=== PATIENT | female | born 1990 | race American Indian/Alaskan Native ===

== ENCOUNTER 2016-09-07 11:01 | Inpatient (IN) | payer OTHER ==
[~2016-09-07 11:01] MED LIST: ATROVENT IH ONE; PROVENTIL IH ONE
[2016-09-07] MEDS ORDERED: PROVENTIL IH ONE ×2 (11:30→13:15)
--- NOTE | 2016-09-07 11:31 | Emergency Department Report ---
ED Shortness of Breath HPI - General Chief Complaint: Dyspnea/Respdistress Stated Complaint: NARCISO Time Seen by Provider: 09/07/16 11:17 Source: patient, RN notes reviewed Mode of arrival: Ambulatory Limitations: Physical Limitation - History of Present Illness Initial Comments: 25-year-old female presents to the emergency department complaining of difficulty breathing. Patient states for the past 3 days she has been having progressively worsening shortness of breath. Symptoms became acutely worse last night. Patient states that she has not been diagnosed formally with asthma , although she has home nebulizer treatments and an albuterol inhaler. Patient states she gave herself 12 nebulizer treatments last night and has used multiple puffs from her MDI without relief. Patient reports some lightheadedness, but has not passed out. She denies chest pain. She does report cough productive of green sputum. There has been no fever. There are no other complaints. MD Complaint: shortness of breath, cough -: Gradual, days(s) (3) Pain Scale: 0 Consistency: constant Improves With: nothing Worsens With: nothing Associated Symptoms: syncope (lightheadedness, no loss of consciousness) Treatments Prior to Arrival: bronchodilator - Related Data Allergies Allergy/AdvReac Type Severity Reaction Status Date / Time No Known Allergies Allergy Unverified 09/07/16 11:47 ED Review of Systems ROS: Stated complaint: NARCISO Other details as noted in HPI Comment: All other systems reviewed and negative Respiratory: cough, shortness of breath Cardiovascular: syncope (lightheadedness, no loss of consciousness) ED Past Medical Hx - Past Medical History Previous Medical History?: No - Surgical History Past Surgical History?: No - Family History Family history: no significant - Social History Smoking Status: Never Smoker Substance Use Type: None ED Physical Exam - General Limitations: Physical Limitation General appearance: alert, in distress (moderate respiratory distress) - Head Head exam: Present: atraumatic, normocephalic - Eye Eye exam: Present: normal appearance, PERRL, EOMI - ENT ENT exam: Present: normal exam, normal orophraynx, mucous membranes moist - Neck Neck exam: Present: normal inspection, full ROM. Absent: tenderness - Respiratory Respiratory exam: Present: respiratory distress (moderate tachypnea), wheezes ( diffuse anterior expiratory) - Cardiovascular Cardiovascular Exam: Present: normal rhythm, tachycardia, normal heart sounds - GI/Abdominal GI/Abdominal exam: Present: soft, normal bowel sounds. Absent: distended, tenderness - Extremities Exam Extremities exam: Present: normal inspection, full ROM. Absent: tenderness - Back Exam Back exam: Present: normal inspection, full ROM. Absent: tenderness - Neurological Exam Neurological exam: Present: alert, oriented X3. Absent: motor sensory deficit - Skin Skin exam: Present: warm, dry, intact ED Course Vital Signs 09/07/16 09/07/16 09/07/16 11:03 11:10 11:59 Temperature 98.2 F Pulse Rate 121 H Respiratory 39 H Rate Blood Pressure 124/62 143/108 O2 Sat by Pulse 100 99 99 Oximetry 09/07/16 09/07/16 12:00 12:30 Temperature Pulse Rate 112 H Respiratory 39 H 33 H Rate Blood Pressure 141/100 O2 Sat by Pulse 98 98 Oximetry ED Medical Decision Making - Lab Data Result diagrams: 09/07/16 11:29 09/07/16 12:26 - EKG Data -: EKG Interpreted by Me EKG shows normal: sinus rhythm, axis, intervals, QRS complexes, ST-T waves Rate: tachycardia - EKG Data When compared to previous EKG there are: previous EKG unavailable Interpretation: normal EKG - Radiology Data Radiology results: image reviewed interpreted by me: Chest x-ray shows no acute cardiopulmonary abnormality. - Medical Decision Making Patient was subsequently placed on BiPAP by respiratory therapy. Patient reports feeling better at this time, although she continues to have diffuse wheezes noted. Patient does have slightly improved air movement. Giving additional nebulizer treatments. Lab and imaging results reviewed and discussed with the patient. Patient is to be admitted by the hospitalist, Dr. Joy. - Differential Diagnosis asthma exacerbation, pneumonia Critical care attestation.: If time is entered above; I have spent that time in minutes in the direct care of this critically ill patient, excluding procedure time. ED Disposition Clinical Impression: Asthma Qualifiers: Asthma severity: unspecified severity Asthma complication type: with acute exacerbation Qualified Code(s): J45.901 - Unspecified asthma with (acute) exacerbation Disposition: OP ADMITTED IP TO THIS HOSP Is pt being admited?: Yes Condition: Stable Instructions: Asthma (ED) Time of Disposition: 13:19
[2016-09-07] MEDS ORDERED: ATIVAN ONE (11:37)
[2016-09-07] MEDS ORDERED: ATIVAN IV ONE (11:40)
[2016-09-07 11:57] LABS: Basophils % (Auto) 0.7 % (0.0-1.8); Hematocrit 41.6 % (30.3-42.9); Hemoglobin 13.5 gm/dl (10.1-14.3); Mean Corpuscular HGB Conc 32 % (30-34); Mean Corpuscular Hemoglobin 29 pg (28-32); Mean Corpuscular Volume 90 fl (79-97); Platelet Count 319 K/mm3 (140-440); Red Blood Count 4.61 M/mm3 (3.65-5.03); Red Cell Distribution Width 14.5 % (13.2-15.2); White Blood Count 9.5 K/mm3 (4.5-11.0)
[2016-09-07 12:04] LABS: Anion Gap 16 mmol/L; BUN/Creatinine Ratio 11.42; Blood Urea Nitrogen 8 mg/dL (7-17); Calcium 8.8 mg/dL (8.4-10.2); Carbon Dioxide 23 mmol/L (22-30); Chloride 106.2 mmol/L (98-107); Glucose 112 mg/dL (65-100); Potassium 3.8 mmol/L (3.6-5.0); Sodium 141 mmol/L (137-145)
[2016-09-07] MEDS ORDERED: ATROVENT IH ONE (12:37)
[2016-09-07 12:59] LABS: Carbon Dioxide 23 mmol/L (22-30)
[2016-09-07 13:00] LABS: Anion Gap 16 mmol/L; BUN/Creatinine Ratio 11.42; Blood Urea Nitrogen 8 mg/dL (7-17); Calcium 8.3 mg/dL (8.4-10.2); Chloride 105.8 mmol/L (98-107); Glucose 184 mg/dL (65-100); Potassium 3.7 mmol/L (3.6-5.0); Sodium 141 mmol/L (137-145)
--- NOTE | 2016-09-07 13:32 | Admit Criteria Form ---
Admission Criteria Documentation: RESPIRATORY FAILURE GRG Clinical Indications for Admission to Inpatient Care (Place 'X' for any and all applicable criteria): Hospital admission is needed for appropriate care of the patient because of acute respiratory failure or insufficiency as indicated by ANY ONE of the following(1)(2)(3)(4)(5)(6)(7)(8): [X ]I. Mechanical ventilation needed (acute invasive or noninvasive) [ ]II. Severe ventilation deficit as indicated by ANY ONE of the following (9) [ ]a) Respiratory acidosis (pH less than 7.32 and partial pressure of carbon dioxide greater than 40 mm Hg (5.3 kPa)) [ ]b) Partial pressure of carbon dioxide greater than 44 mm Hg (5.9 kPa ) (new) [ ]c) Airflow measurements less than 25% of predicted (eg, peak expiratory flow rate less than 100 L/minute) [ ]d) Forced vital capacity less than 15 mL/kg of ideal body weight, or 50% decrease in vital capacity from baseline [ ]III. Noncardiac pulmonary edema not resolving with rapid emergency treatment (8) [ ]IV. Severe respiratory distress as indicated by ANY ONE of the following: [ ]a) Severe tachypnea (respiratory rate greater than 30, greater than 45 for 6-month-old, greater than 60 for ) [ ]b) Severe hypoxemia (partial pressure of oxygen less than 50 mm Hg ( 6.7 kPa) on greater than 50% oxygen or partial pressure of oxygen to FIO2 ratio less than 200) [ ]c) Mental status deterioration from respiratory disease [ ]V. Airway obstruction or inadequate protection [A](10)(11) The original [employer] content created by [employer] has been revised. The portions of the content which have been revised are identified through the use of italic text or in bold, and [employer] has neither reviewed nor approved the modified material. All other unmodified content is copyright [employer]. Please see references footnoted in the original [employer] edition 2016 Admission Criteria Met: Yes
--- NOTE | 2016-09-07 14:03 | XRay Report ---
AP CHEST: HISTORY: Dyspnea AP view of the chest demonstrates a normal mediastinal and cardiac contour with clear lungs and normal bony and soft tissue structures. IMPRESSION: Unremarkable AP chest.
[2016-09-07 14:33] LABS: ISTAT Base Excess -5; ISTAT HCO3 21.6; ISTAT PCO2 42.9 (35-45); ISTAT PH 7.309 (7.35-7.45); ISTAT PO2 71 (80-105); ISTAT SO2 92; ISTAT TCO2 23
[2016-09-07] MEDS: DUONEB 0.5 MG-3 MG/3 ML SOLN IH SCH (20:27)
[2016-09-07] MEDS ORDERED: PROVENTIL IH PRN (22:24)
[2016-09-07] MEDS ORDERED: AMBIEN PO PRN (23:31)
[2016-09-07] MEDS ORDERED: TYLENOL PO PRN (23:31)
[2016-09-07] MEDS ORDERED: XOPENEX IH PRN ×2 (23:31)
[2016-09-07] MEDS ORDERED: MILK OF MAGNESIA PO PRN (23:31)
[2016-09-07] MEDS ORDERED: DULCOLAX PR PRN (23:31)
[2016-09-07] MEDS ORDERED: ZOFRAN IV PRN (23:31)
--- NOTE | 2016-09-07 23:31 | Event Note ---
Date: 09/07/16 See H/p in reports Asthma exacerbation
[2016-09-07] MEDS ORDERED: D5NS 1,000 ML IV SCH (23:45)
[2016-09-08] MEDS ORDERED: PROVENTIL IH PRN (00:03)
[2016-09-08 04:23] LABS: Basophils % (Auto) 0.3 % (0.0-1.8); Eosinophils % (Auto) 0.1 % (0.0-4.3); Hematocrit 39.9 % (30.3-42.9); Hemoglobin 13.1 gm/dl (10.1-14.3); Mean Corpuscular HGB Conc 33 % (30-34); Mean Corpuscular Hemoglobin 29 pg (28-32); Mean Corpuscular Volume 89 fl (79-97); Platelet Count 302 K/mm3 (140-440); Red Blood Count 4.48 M/mm3 (3.65-5.03); Red Cell Distribution Width 14.2 % (13.2-15.2); White Blood Count 6.7 K/mm3 (4.5-11.0)
[2016-09-08 04:45] LABS: Anion Gap 18 mmol/L; BUN/Creatinine Ratio 12.85; Blood Urea Nitrogen 9 mg/dL (7-17); Calcium 9.1 mg/dL (8.4-10.2); Carbon Dioxide 24 mmol/L (22-30); Chloride 103.4 mmol/L (98-107); Glucose 139 mg/dL (65-100); Potassium 4.4 mmol/L (3.6-5.0); Sodium 141 mmol/L (137-145)
[2016-09-08] MEDS: PULMICORT IH SCH ×3 (08:25→19:38)
[2016-09-08] MEDS: BROVANA NEBU IH SCH ×3 (08:25→19:38)
[2016-09-08] MEDS: DUONEB 0.5 MG-3 MG/3 ML SOLN IH SCH ×3 (08:26→19:38)
[2016-09-08] MEDS: PEPCID PO SCH ×2 (10:25→22:02)
[2016-09-08] MEDS: LEVAQUIN 750MG/150ML 750 MG/150 ML BAG IV SCH (10:25)
--- NOTE | 2016-09-08 10:36 | History and Physical Report ---
CHIEF COMPLAINT: Increasing shortness of breath for the last 3 days. HISTORY OF PRESENT ILLNESS: A 25-year-old -[place] female with history of asthma who comes in for increasing wheezing and not responding to inhalers. This has been going on for the last 3 days. Cough productive of mucoid sputum. No fever, no chills. The patient has home nebulizer and has been using albuterol nebulizer treatments. She used about 6 nebulizer treatments last night. When she came in, she was in acute respiratory distress with accessory muscles of respiration being very prominent. No exacerbating or no relieving factors. PAST MEDICAL HISTORY: As mentioned asthma. PAST SURGICAL HISTORY: None. FAMILY HISTORY: No significant family history. SOCIAL HISTORY: Does not smoke. No alcohol, no recreational drugs. REVIEW OF SYSTEMS: Significant for severe wheezing, no fever, no chills. Otherwise, the 14-point review of systems was negative. All systems reviewed. No chest pain. No nausea, no vomiting, no diarrhea. No rash. No dysuria. No flank pain. No focal deficits. PHYSICAL EXAMINATION: GENERAL: Young female in respiratory distress, on BiPAP. VITAL SIGNS: Blood pressure 119/59, temperature 98.5, pulse 117, respirations are up to 35. HEENT: Unremarkable. Pupils equal and reactive. NECK: Accessory muscles of respiration are prominent. LUNGS: Bilateral inspiratory and expiratory rhonchi present. CARDIOVASCULAR: S1, S2 heard. No gallop, no murmur, no rub. Apical impulse in left fifth intercostal space and midclavicular line. ABDOMEN: Soft and benign. No hepatosplenomegaly. No guarding, no rigidity. Hernial orifices are normal. EXTREMITIES: Good pedal pulses. No pedal edema. CENTRAL NERVOUS SYSTEM: Alert and oriented x 4, nonfocal exam. SKIN: Normal. LABORATORY DATA: Reviewed. White count is 9500, H and H is 13.5 and 41.6, platelet count is 319. Electrolytes are normal. ABG significant for pH of 7.30, pCO2 of 42.9, pO2 of 71, bicarbonate of 21, O2 sats 92%. Chest x-ray is normal. No acute findings. ASSESSMENT AND PLAN: 1. Acute asthma exacerbation necessitating BiPAP machine, severe. The patient started on IV Solu-Medrol IV 125 q. 8 and IV Levaquin and Xopenex around the clock and q. 3 p.r.n. Prognosis is fair to guarded. We will admit to the floor with telemetry. 2. Deep venous thrombosis prophylaxis, Lovenox 40 mg subcutaneous daily. [facility]# [id number] KAYE/SHREE URRUTIA
[2016-09-08] MEDS: DILAUDID IV PRN ×2 (12:07→17:32)
--- NOTE | 2016-09-08 17:49 | Progress Note ---
Assessment and Plan Assessment and plan: 1. Acute hypoxic respiratory failure Treated asthma exacerbation, supplemental oxygen 2. Asthma exacerbation Started on IV corticosteroids, antibiotics and inhaledd bronchodilators along with supplemental oxygen as needed Based on her report, it seems she has mild-moderate persistent asthma Decreased corticosteroid dose Add Singulair Consult pulmonary for further treatment management 3. DVT prophylaxis History Interval history: feeling better, SOB improved, still wheezing Hospitalist Physical - Constitutional Vitals: Temp Pulse Resp BP Pulse Ox 98.4 F 79 20 115/60 98 09/08/16 10:20 09/08/16 14:22 09/08/16 14:22 09/08/16 10:20 09/08/16 10:20 General appearance: Present: mild distress, well-nourished - EENT Eyes: Present: PERRL, EOM intact. Absent: scleral icterus, conjunctival injection - Neck Neck: Present: supple, normal ROM. Absent: enlarged thyroid, masses or JVD - Respiratory Respiratory effort: normal (at rest) Respiratory: bilateral: diminished, wheezing, negative: rales, rhonchi - Cardiovascular Rhythm: regular Heart Sounds: Present: S1 & S2. Absent: systolic murmur - Extremities Extremities: no ischemia - Abdominal General gastrointestinal: soft, non-tender, non-distended, normal bowel sounds - Integumentary Integumentary: Present: warm, dry. Absent: jaundice, rash - Psychiatric Psychiatric: cooperative - Neurologic Neurologic: CNII-XII intact, no focal deficits Results - Labs CBC & Chem 7: 09/08/16 03:36 09/08/16 03:36 Labs: Laboratory Last Values WBC 6.7 K/mm3 (4.5-11.0) 09/08/16 03:36 RBC 4.48 M/mm3 (3.65-5.03) 09/08/16 03:36 Hgb 13.1 gm/dl (10.1-14.3) 09/08/16 03:36 Hct 39.9 % (30.3-42.9) 09/08/16 03:36 MCV 89 fl (79-97) 09/08/16 03:36 MCH 29 pg (28-32) 09/08/16 03:36 MCHC 33 % (30-34) 09/08/16 03:36 RDW 14.2 % (13.2-15.2) 09/08/16 03:36 Plt Count 302 K/mm3 (140-440) 09/08/16 03:36 Lymph % (Auto) 14.5 % (13.4-35.0) 09/08/16 03:36 [place] % (Auto) 3.7 % (0.0-7.3) 09/08/16 03:36 Eos % (Auto) 0.1 % (0.0-4.3) 09/08/16 03:36 Baso % (Auto) 0.3 % (0.0-1.8) 09/08/16 03:36 Lymph # 1.0 K/mm3 (1.2-5.4) L 09/08/16 03:36 [place] # 0.3 K/mm3 (0.0-0.8) 09/08/16 03:36 Eos # 0.0 K/mm3 (0.0-0.4) 09/08/16 03:36 Baso # 0.0 K/mm3 (0.0-0.1) 09/08/16 03:36 Seg Neutrophils % 81.4 % (40.0-70.0) H 09/08/16 03:36 Seg Neutrophils # 5.5 K/mm3 (1.8-7.7) 09/08/16 03:36 POC ABG pH 7.309 (7.35-7.45) L 09/07/16 14:26 POC ABG pCO2 42.9 (35-45) 09/07/16 14:26 POC ABG pO2 71 (80-105) L 09/07/16 14:26 POC ABG HCO3 21.6 09/07/16 14:26 POC ABG Total CO2 23 09/07/16 14:26 POC ABG O2 Sat 92 09/07/16 14:26 POC ABG Base Excess -5 09/07/16 14:26 FiO2 30 % 09/07/16 14:26 Sodium 141 mmol/L (137-145) 09/08/16 03:36 Potassium 4.4 mmol/L (3.6-5.0) 09/08/16 03:36 Chloride 103.4 mmol/L (98-107) 09/08/16 03:36 Carbon Dioxide 24 mmol/L (22-30) 09/08/16 03:36 Anion Gap 18 mmol/L 09/08/16 03:36 BUN 9 mg/dL (7-17) 09/08/16 03:36 Creatinine 0.7 mg/dL (0.7-1.2) 09/08/16 03:36 Estimated GFR > 60 ml/min 09/08/16 03:36 BUN/Creatinine Ratio 12.85 % 09/08/16 03:36 Glucose 139 mg/dL (65-100) H 09/08/16 03:36 Calcium 9.1 mg/dL (8.4-10.2) 09/08/16 03:36 Magnesium 1.80 mg/dL (1.7-2.3) 09/07/16 11:29 Troponin T < 0.010 ng/mL (0.00-0.029) 09/07/16 12:26 HCG, Qual Negative (Negative) 09/07/16 12:37
[2016-09-08] MEDS: PERCOCET 5/325 PO PRN (23:47)
[2016-09-09] MEDS: BROVANA NEBU IH SCH ×2 (07:50→20:29)
[2016-09-09] MEDS: PULMICORT IH SCH ×2 (07:50→20:29)
[2016-09-09] MEDS: PERCOCET 5/325 PO PRN (08:06)
[2016-09-09] MEDS: DUONEB 0.5 MG-3 MG/3 ML SOLN IH SCH ×3 (09:27→20:29)
[2016-09-09] MEDS: PEPCID PO SCH ×2 (11:13→21:50)
[2016-09-09] MEDS: LEVAQUIN 750MG/150ML 750 MG/150 ML BAG IV SCH (11:13)
[2016-09-09] MEDS: FIORICET PO PRN ×2 (13:08→21:50)
--- NOTE | 2016-09-09 13:38 | Progress Note ---
Assessment and Plan Assessment and plan: 1. Acute hypoxic respiratory failure Treating asthma exacerbation, supplemental oxygen 2. Asthma exacerbation Started on IV corticosteroids, antibiotics and inhaledd bronchodilators along with supplemental oxygen as needed Based on her report, it seems she has mild-moderate persistent asthma Taper corticosteroid, plan to swith to po tomorrow Singulair added Pulmonary consulted for further treatment management 3. Migraine Fioricet prn 4. DVT prophylaxis History Interval history: SOB and wheezing improved, but c/o severe headache this morning Hospitalist Physical - Constitutional Vitals: Temp Pulse Resp BP Pulse Ox 97.6 F 64 20 112/56 97 09/09/16 12:00 09/09/16 12:00 09/09/16 13:08 09/09/16 12:00 09/09/16 12:00 General appearance: Present: mild distress, well-nourished - EENT Eyes: Present: PERRL, EOM intact. Absent: scleral icterus, conjunctival injection - Neck Neck: Present: supple, normal ROM. Absent: masses or JVD - Respiratory Respiratory effort: normal Respiratory: bilateral: CTA, wheezing (rare exp wheezes), negative: rales, rhonchi - Cardiovascular Rhythm: other (tachycardic) Heart Sounds: Present: S1 & S2. Absent: systolic murmur - Extremities Extremities: no ischemia - Abdominal General gastrointestinal: soft, non-tender, non-distended, normal bowel sounds - Psychiatric Psychiatric: cooperative - Neurologic Neurologic: CNII-XII intact, no focal deficits Results - Labs CBC & Chem 7: 09/08/16 03:36 09/08/16 03:36 Labs: Laboratory Last Values WBC 6.7 K/mm3 (4.5-11.0) 09/08/16 03:36 RBC 4.48 M/mm3 (3.65-5.03) 09/08/16 03:36 Hgb 13.1 gm/dl (10.1-14.3) 09/08/16 03:36 Hct 39.9 % (30.3-42.9) 09/08/16 03:36 MCV 89 fl (79-97) 09/08/16 03:36 MCH 29 pg (28-32) 09/08/16 03:36 MCHC 33 % (30-34) 09/08/16 03:36 RDW 14.2 % (13.2-15.2) 09/08/16 03:36 Plt Count 302 K/mm3 (140-440) 09/08/16 03:36 Lymph % (Auto) 14.5 % (13.4-35.0) 09/08/16 03:36 [place] % (Auto) 3.7 % (0.0-7.3) 09/08/16 03:36 Eos % (Auto) 0.1 % (0.0-4.3) 09/08/16 03:36 Baso % (Auto) 0.3 % (0.0-1.8) 09/08/16 03:36 Lymph # 1.0 K/mm3 (1.2-5.4) L 09/08/16 03:36 [place] # 0.3 K/mm3 (0.0-0.8) 09/08/16 03:36 Eos # 0.0 K/mm3 (0.0-0.4) 09/08/16 03:36 Baso # 0.0 K/mm3 (0.0-0.1) 09/08/16 03:36 Seg Neutrophils % 81.4 % (40.0-70.0) H 09/08/16 03:36 Seg Neutrophils # 5.5 K/mm3 (1.8-7.7) 09/08/16 03:36 POC ABG pH 7.309 (7.35-7.45) L 09/07/16 14:26 POC ABG pCO2 42.9 (35-45) 09/07/16 14:26 POC ABG pO2 71 (80-105) L 09/07/16 14:26 POC ABG HCO3 21.6 09/07/16 14:26 POC ABG Total CO2 23 09/07/16 14:26 POC ABG O2 Sat 92 09/07/16 14:26 POC ABG Base Excess -5 09/07/16 14:26 FiO2 30 % 09/07/16 14:26 Sodium 141 mmol/L (137-145) 09/08/16 03:36 Potassium 4.4 mmol/L (3.6-5.0) 09/08/16 03:36 Chloride 103.4 mmol/L (98-107) 09/08/16 03:36 Carbon Dioxide 24 mmol/L (22-30) 09/08/16 03:36 Anion Gap 18 mmol/L 09/08/16 03:36 BUN 9 mg/dL (7-17) 09/08/16 03:36 Creatinine 0.7 mg/dL (0.7-1.2) 09/08/16 03:36 Estimated GFR > 60 ml/min 09/08/16 03:36 BUN/Creatinine Ratio 12.85 % 09/08/16 03:36 Glucose 139 mg/dL (65-100) H 09/08/16 03:36 Calcium 9.1 mg/dL (8.4-10.2) 09/08/16 03:36 Magnesium 1.80 mg/dL (1.7-2.3) 09/07/16 11:29 Troponin T < 0.010 ng/mL (0.00-0.029) 09/07/16 12:26 HCG, Qual Negative (Negative) 09/07/16 12:37
--- NOTE | 2016-09-09 14:49 | Consultation ---
History of Present Illness History of present illness: This is a female with a hx of asthma since childhood, she had been doing well until 7 years ago with her first she began having asthma attacks. She has had exacerbations during her four pregnancies since then. She was doing well untill a few months ago when she had an exacerbation secondary to pollen. She improved using neb tx and inhalers. 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 She continued to do poorly and while at work on was unable to ambulate. She was brought to er by ems. She recd neb tx and o2 and steroids with some improvement. She still is congested and wheezing but feels better. at bedside reports that she is improved at rest but is unable ambulate e/o getting SOB. She has never been intubated and is not on steroids chronicly. She only use neb w alb and ventolin inhaler. she is not on maintenance meds Past History Past Medical History: other (asthma) Medications and Allergies Allergies Allergy/AdvReac Type Severity Reaction Status Date / Time No Known Allergies Allergy Unverified 09/07/16 11:47 Home Medications Medication Instructions Recorded Confirmed Last Taken Type No Known Home Medications [No 09/07/16 09/07/16 Unknown History Reported Home Medications] Active Meds: Active Medications Acetaminophen (Tylenol) 650 mg PO Q4H PRN PRN Reason: Pain MILD(1-3)/Fever >100.5/[place] Last Admin: 09/08/16 10:25 Dose: 650 mg Acetaminophen/Butalbital/Caffeine (Fioricet) 2 tab PO Q4H PRN PRN Reason: Headache Last Admin: 09/09/16 13:08 Dose: 2 tab Albuterol (Proventil) 2.5 mg IH Q3HRT PRN PRN Reason: Shortness Of Breath Albuterol/Ipratropium (Duoneb 0.5 Mg-3 Mg/3 Ml Soln) 1 ampul IH TIDRT [facility] Last Admin: 09/09/16 13:49 Dose: 1 ampul Arformoterol Tartrate (Brovana Nebu) 15 mcg IH Q12HRT [facility] Last Admin: 09/09/16 07:50 Dose: 15 mcg Bisacodyl (Dulcolax) 10 mg IN QDAY PRN PRN Reason: Constipation unrelieved by MOM Budesonide (Pulmicort) 0.5 mg IH Q12HRT [facility] Last Admin: 09/09/16 07:50 Dose: 0.5 mg Famotidine (Pepcid) 20 mg PO BID [facility] Last Admin: 09/09/16 11:13 Dose: 20 mg Dextrose/Sodium Chloride (D5ns) 1,000 mls @ 75 mls/hr IV DIRECT [facility] Levofloxacin/Dextrose (Levaquin 750mg/150ml) 750 mg in 150 mls @ 100 mls/hr IV Q24HR [facility] PRN Reason: Protocol Last Admin: 09/09/16 11:13 Dose: 100 mls/hr Magnesium Hydroxide (Milk Of Magnesia) 30 ml PO Q4H PRN PRN Reason: Constipation Methylprednisolone Sodium Succinate (Solu-Medrol) 40 mg IV Q8H [facility] Last Admin: 09/09/16 13:08 Dose: 40 mg Ondansetron HCl (Zofran) 4 mg IV Q8H PRN PRN Reason: N/V unrelieved by Reglan Oxycodone/Acetaminophen (Percocet 5/325) 1 tab PO Q6H PRN PRN Reason: Pain, Moderate (4-6) Last Admin: 09/09/16 08:06 Dose: 1 tab Zolpidem Tartrate (Ambien) 5 mg PO QHS PRN PRN Reason: Insomnia Review of Systems Constitutional: fatigue, weakness Ears, nose, mouth and throat: nasal congestion, nasal discharge, sinus pressure , sore throat, post-nasal drip Breasts: deferred Respiratory: cough, shortness of breath, dyspnea on exertion, congestion, wheezing Gastrointestinal: heartburn Physical Examination Vital signs: Vital Signs Pulse Ox 100 09/07/16 11:03 General appearance: other (mild dyspnea) Eyes: non-icteric ENT: oropharynx moist Neck: supple Ascultation: Bilateral: wheezes Cardiovascular: regular rate and rhythm Gastrointestinal: normoactive bowel sounds, soft, non-tender, non-distended Integumentary: normal Extremities: no cyanosis Musculoskeletal: no deformities Gait: normal posture normal mental status, non-focal exam mood appropriate Results - Laboratory Findings CBC and BMP: 09/08/16 03:36 09/08/16 03:36 ABG POC ABG pH 7.309 (7.35-7.45) L 09/07/16 14:26 POC ABG pCO2 42.9 (35-45) 09/07/16 14:26 POC ABG pO2 71 (80-105) L 09/07/16 14:26 POC ABG HCO3 21.6 09/07/16 14:26 POC ABG Total CO2 23 09/07/16 14:26 POC ABG O2 Sat 92 09/07/16 14:26 Abnormal lab findings: Abnormal Labs 09/07/16 09/08/16 09/08/16 14:26 03:36 03:36 Lymph # 1.0 L Seg Neutrophils % 81.4 H POC ABG pH 7.309 L POC ABG pO2 71 L Glucose 139 H - Diagnostic Findings Chest x-ray: report reviewed, image reviewed
[2016-09-10] MEDS: FIORICET PO PRN ×3 (05:27→22:27)
[2016-09-10] MEDS: BROVANA NEBU IH SCH ×2 (07:59→20:35)
[2016-09-10] MEDS: DUONEB 0.5 MG-3 MG/3 ML SOLN IH SCH ×3 (07:59→23:55)
[2016-09-10] MEDS: PULMICORT IH SCH ×2 (07:59→20:35)
--- NOTE | 2016-09-10 08:46 | Discharge Summary ---
Providers - Providers Date of Admission: 09/07/16 13:19 Date of discharge: 09/10/16 Attending physician: SHERIE CARRILLO 09/08/16 18:01 Consult to Physician [CONS] Routine Consulting Provider: CARLOS LOMBARDI Reason For Exam: persistent asthma Place consult to:: Dr. Lombardi Notified:: CELESTINO FROM ANSWERING SERVICE Phone number called:: [phone] Was contact made?: Yes If yes, spoke with:: CELESTINO Time called:: 06:55 Primary care physician: RECORDS CUSTODIAN Hospitalization Reason for admission: worsening shortness of breath Condition: Stable Pertinent studies: Chest x-ray Disposition: DISCHARGED TO HOME OR SELFCARE Time spent for discharge: 35 minutes Exam - Constitutional Vitals: Temp Pulse Resp BP Pulse Ox 97.7 F 65 20 120/65 96 09/10/16 05:59 09/10/16 05:59 09/10/16 05:59 09/10/16 05:59 09/10/16 05:59 Plan Follow up with: [facility] [Outside] - 09/19/16 10:30 am PRIMARY CAREMD [Primary Care Provider] - 7 Days
--- NOTE | 2016-09-10 11:45 | Progress Note ---
Assessment and Plan Assessment and plan: 1. Acute hypoxic respiratory failure Treating asthma exacerbation, supplemental oxygen 2. Asthma exacerbation Started on IV corticosteroids, antibiotics and inhaled bronchodilators along with supplemental oxygen as needed Based on her report, it seems she has mild-moderate persistent asthma Continue iv corticosteroid, add Singulair Pulmonary consulted for further treatment management (will need outpatient PFTs) 3. Migraine Fioricet prn 4. DVT prophylaxis History Interval history: still SOB and wheezing, nauseated, threw up this morning Hospitalist Physical - Constitutional Vitals: Temp Pulse Resp BP Pulse Ox 97.7 F 64 18 131/64 98 09/10/16 05:59 09/10/16 09:55 09/10/16 09:18 09/10/16 09:18 09/10/16 09:18 General appearance: Present: mild distress - EENT Eyes: Present: PERRL, EOM intact. Absent: scleral icterus, conjunctival injection - Neck Neck: Present: supple, normal ROM. Absent: masses or JVD - Respiratory Respiratory effort: labored Respiratory: bilateral: diminished, wheezing - Cardiovascular Rhythm: regular Heart Sounds: Present: S1 & S2. Absent: systolic murmur - Extremities Extremities: no ischemia, No edema - Abdominal General gastrointestinal: soft, non-tender, non-distended, normal bowel sounds - Integumentary Integumentary: Present: warm, dry. Absent: jaundice, rash - Psychiatric Psychiatric: cooperative - Neurologic Neurologic: CNII-XII intact, no focal deficits Results - Labs CBC & Chem 7: 09/08/16 03:36 09/08/16 03:36 Labs: Laboratory Last Values WBC 6.7 K/mm3 (4.5-11.0) 09/08/16 03:36 RBC 4.48 M/mm3 (3.65-5.03) 09/08/16 03:36 Hgb 13.1 gm/dl (10.1-14.3) 09/08/16 03:36 Hct 39.9 % (30.3-42.9) 09/08/16 03:36 MCV 89 fl (79-97) 09/08/16 03:36 MCH 29 pg (28-32) 09/08/16 03:36 MCHC 33 % (30-34) 09/08/16 03:36 RDW 14.2 % (13.2-15.2) 09/08/16 03:36 Plt Count 302 K/mm3 (140-440) 09/08/16 03:36 Lymph % (Auto) 14.5 % (13.4-35.0) 09/08/16 03:36 [place] % (Auto) 3.7 % (0.0-7.3) 09/08/16 03:36 Eos % (Auto) 0.1 % (0.0-4.3) 09/08/16 03:36 Baso % (Auto) 0.3 % (0.0-1.8) 09/08/16 03:36 Lymph # 1.0 K/mm3 (1.2-5.4) L 09/08/16 03:36 [place] # 0.3 K/mm3 (0.0-0.8) 09/08/16 03:36 Eos # 0.0 K/mm3 (0.0-0.4) 09/08/16 03:36 Baso # 0.0 K/mm3 (0.0-0.1) 09/08/16 03:36 Seg Neutrophils % 81.4 % (40.0-70.0) H 09/08/16 03:36 Seg Neutrophils # 5.5 K/mm3 (1.8-7.7) 09/08/16 03:36 POC ABG pH 7.309 (7.35-7.45) L 09/07/16 14:26 POC ABG pCO2 42.9 (35-45) 09/07/16 14:26 POC ABG pO2 71 (80-105) L 09/07/16 14:26 POC ABG HCO3 21.6 09/07/16 14:26 POC ABG Total CO2 23 09/07/16 14:26 POC ABG O2 Sat 92 09/07/16 14:26 POC ABG Base Excess -5 09/07/16 14:26 FiO2 30 % 09/07/16 14:26 Sodium 141 mmol/L (137-145) 09/08/16 03:36 Potassium 4.4 mmol/L (3.6-5.0) 09/08/16 03:36 Chloride 103.4 mmol/L (98-107) 09/08/16 03:36 Carbon Dioxide 24 mmol/L (22-30) 09/08/16 03:36 Anion Gap 18 mmol/L 09/08/16 03:36 BUN 9 mg/dL (7-17) 09/08/16 03:36 Creatinine 0.7 mg/dL (0.7-1.2) 09/08/16 03:36 Estimated GFR > 60 ml/min 09/08/16 03:36 BUN/Creatinine Ratio 12.85 % 09/08/16 03:36 Glucose 139 mg/dL (65-100) H 09/08/16 03:36 Calcium 9.1 mg/dL (8.4-10.2) 09/08/16 03:36 Magnesium 1.80 mg/dL (1.7-2.3) 09/07/16 11:29 Troponin T < 0.010 ng/mL (0.00-0.029) 09/07/16 12:26 HCG, Qual Negative (Negative) 09/07/16 12:37
[2016-09-10] MEDS: LEVAQUIN 750MG/150ML 750 MG/150 ML BAG IV SCH (12:06)
[2016-09-10] MEDS: PEPCID PO SCH ×2 (12:06→22:22)
--- NOTE | 2016-09-10 14:08 | Progress Note ---
Subjective Interval history: improved but still w signif wheezing Objective Vital Signs - 12hr 09/10/16 09/10/16 09/10/16 05:59 07:59 08:10 Temperature 97.7 F Pulse Rate Pulse Rate [ 63 78 Anterior Bilateral Throughout] Pulse Rate [ Left Radial] Pulse Rate [ 65 Right Radial] Respiratory 20 Rate Respiratory 18 20 Rate [Anterior Bilateral Throughout] Blood Pressure [Left Arm] Blood Pressure 120/65 [Right Arm] O2 Sat by Pulse 96 99 Oximetry 09/10/16 09/10/16 09:18 09:55 Temperature Pulse Rate 64 Pulse Rate [ Anterior Bilateral Throughout] Pulse Rate [ 67 Left Radial] Pulse Rate [ Right Radial] Respiratory 18 Rate Respiratory Rate [Anterior Bilateral Throughout] Blood Pressure 131/64 [Left Arm] Blood Pressure [Right Arm] O2 Sat by Pulse 98 Oximetry Constitutional: other (mild dyspnea) Eyes: non-icteric ENT: oropharynx moist Neck: supple Ascultation: Bilateral: wheezes (exp prolonged phase) Cardiovascular: regular rate and rhythm Gastrointestinal: normoactive bowel sounds, soft, non-tender, non-distended Integumentary: normal Extremities: no cyanosis Neurologic: normal mental status, non-focal exam Psychiatric: mood appropriate CBC and BMP: 09/08/16 03:36 09/08/16 03:36 ABG, PT/INR, D-dimer: ABG POC ABG pH 7.309 (7.35-7.45) L 09/07/16 14:26 POC ABG pCO2 42.9 (35-45) 09/07/16 14:26 POC ABG pO2 71 (80-105) L 09/07/16 14:26 POC ABG HCO3 21.6 09/07/16 14:26 POC ABG Total CO2 23 09/07/16 14:26 POC ABG O2 Sat 92 09/07/16 14:26 Abnormal lab findings: Abnormal Labs 09/07/16 09/08/16 09/08/16 14:26 03:36 03:36 Lymph # 1.0 L Seg Neutrophils % 81.4 H POC ABG pH 7.309 L POC ABG pO2 71 L Glucose 139 H
[2016-09-10] MEDS: SINGULAIR PO SCH (22:22)
[2016-09-11] MEDS: FIORICET PO PRN ×3 (06:27→21:44)
[2016-09-11] MEDS: DUONEB 0.5 MG-3 MG/3 ML SOLN IH SCH ×3 (10:02→20:43)
[2016-09-11] MEDS: BROVANA NEBU IH SCH ×2 (10:02→20:44)
[2016-09-11] MEDS: PULMICORT IH SCH ×2 (10:02→20:43)
[2016-09-11] MEDS: LEVAQUIN 750MG/150ML 750 MG/150 ML BAG IV SCH (10:16)
[2016-09-11] MEDS: PEPCID PO SCH ×2 (10:17→21:43)
--- NOTE | 2016-09-11 11:59 | Progress Note ---
Assessment and Plan Asthma exacerbation. Needs to be on steroids to establish better control. Anxiety. Apparently in a hinkle to go back home. Concern about her family and kids. She denies drug abuse or smoking Recommendations She should have prednisone 30 mg daily starting now Monitor response. She will probably benefit from combination ICS/LABA/LTRE at the time of discharge with a 7-10 days Steroid taper. Recommending initiating Breo 160/4.5 one inhalation daily, continue montelukast 10 mg daily and steroid as above Needs follow-up with primary physician and PFTs once released from the hospital. I discussed this with the patient in detail Anxiety management Update influenza and pneumonia vaccination if not done already Subjective Date of service: 09/11/16 Principal diagnosis: status asthmaticus, aspirin exacerbation, anxiety Interval history: Very anxious about her condition and restless. No chest pain reported. The wheezing which is " normal for her", noted for years according to the patient. Reportedly only getting ER care for asthma, has not seen a primary/pulmonary physician for management long-term Objective Vital Signs - 12hr 09/11/16 09/11/16 09/11/16 00:16 04:32 06:27 Temperature 98.9 F 98.9 F Pulse Rate Pulse Rate [ Anterior Bilateral Throughout] Pulse Rate [ Left Radial] Pulse Rate [ 76 94 H Right Posterior Tibial] Respiratory 18 18 18 Rate Respiratory Rate [Anterior Bilateral Throughout] Blood Pressure 124/75 110/68 [Left Arm] O2 Sat by Pulse 98 98 Oximetry 09/11/16 09/11/16 09/11/16 07:00 10:00 10:03 Temperature 97.6 F Pulse Rate 65 Pulse Rate [ 91 H Anterior Bilateral Throughout] Pulse Rate [ 101 H Left Radial] Pulse Rate [ Right Posterior Tibial] Respiratory 14 Rate Respiratory 18 Rate [Anterior Bilateral Throughout] Blood Pressure 114/75 [Left Arm] O2 Sat by Pulse 99 100 Oximetry 09/11/16 10:25 Temperature Pulse Rate Pulse Rate [ 118 H Anterior Bilateral Throughout] Pulse Rate [ Left Radial] Pulse Rate [ Right Posterior Tibial] Respiratory Rate Respiratory 20 Rate [Anterior Bilateral Throughout] Blood Pressure [Left Arm] O2 Sat by Pulse Oximetry Constitutional: no acute distress, alert, other (mild dyspnea) Eyes: non-icteric ENT: oropharynx moist Neck: supple Ascultation: Bilateral: wheezes (exp prolonged phase) Cardiovascular: regular rate and rhythm Gastrointestinal: normoactive bowel sounds, soft, non-tender, non-distended Integumentary: normal Extremities: no cyanosis Neurologic: normal mental status, non-focal exam Psychiatric: anxious CBC and BMP: 09/08/16 03:36 09/08/16 03:36 ABG, PT/INR, D-dimer: ABG POC ABG pH 7.309 (7.35-7.45) L 09/07/16 14:26 POC ABG pCO2 42.9 (35-45) 09/07/16 14:26 POC ABG pO2 71 (80-105) L 09/07/16 14:26 POC ABG HCO3 21.6 09/07/16 14:26 POC ABG Total CO2 23 09/07/16 14:26 POC ABG O2 Sat 92 09/07/16 14:26 Abnormal lab findings: Abnormal Labs 09/07/16 09/08/16 09/08/16 14:26 03:36 03:36 Lymph # 1.0 L Seg Neutrophils % 81.4 H POC ABG pH 7.309 L POC ABG pO2 71 L Glucose 139 H Chest x-ray: report reviewed
[2016-09-11] MEDS: DELTASONE PO SCH (12:36)
[2016-09-11] MEDS: XANAX PO SCH ×2 (12:36→21:43)
[2016-09-11] MEDS: PERCOCET 5/325 PO PRN (12:37)
--- NOTE | 2016-09-11 13:16 | Progress Note ---
Assessment and Plan Assessment and plan: 1. Acute hypoxic respiratory failure Treating asthma exacerbation, supplemental oxygen 2. Asthma exacerbation Started on IV corticosteroids, antibiotics and inhaled bronchodilators along with supplemental oxygen as needed Based on her report, it seems she has moderate persistent asthma Singulair was added Corticosteroids switched to po today Pulmonary consulted for further treatment plan (will need outpatient PFTs) 3. Migraine Fioricet prn 4. Anxiety Start low dose BZ 5. DVT prophylaxis History Interval history: Short of breath and wheezing, anxious Hospitalist Physical - Constitutional Vitals: Temp Pulse Resp BP Pulse Ox 97.6 F 118 H 20 114/75 100 09/11/16 07:00 09/11/16 10:25 09/11/16 10:25 09/11/16 07:00 09/11/16 10:00 General appearance: Present: mild distress - EENT Eyes: Present: PERRL, EOM intact. Absent: scleral icterus, conjunctival injection - Neck Neck: Present: supple, normal ROM. Absent: masses or JVD - Respiratory Respiratory effort: labored Respiratory: bilateral: diminished (coarse breath sounds), wheezing - Cardiovascular Rhythm: other (tachycardic) Heart Sounds: Present: S1 & S2. Absent: systolic murmur - Extremities Extremities: no ischemia - Abdominal General gastrointestinal: soft, non-tender, non-distended, normal bowel sounds - Integumentary Integumentary: Present: warm, dry. Absent: jaundice, rash - Neurologic Neurologic: CNII-XII intact, no focal deficits Results - Labs CBC & Chem 7: 09/08/16 03:36 09/08/16 03:36 Labs: Laboratory Last Values WBC 6.7 K/mm3 (4.5-11.0) 09/08/16 03:36 RBC 4.48 M/mm3 (3.65-5.03) 09/08/16 03:36 Hgb 13.1 gm/dl (10.1-14.3) 09/08/16 03:36 Hct 39.9 % (30.3-42.9) 09/08/16 03:36 MCV 89 fl (79-97) 09/08/16 03:36 MCH 29 pg (28-32) 09/08/16 03:36 MCHC 33 % (30-34) 09/08/16 03:36 RDW 14.2 % (13.2-15.2) 09/08/16 03:36 Plt Count 302 K/mm3 (140-440) 09/08/16 03:36 Lymph % (Auto) 14.5 % (13.4-35.0) 09/08/16 03:36 [place] % (Auto) 3.7 % (0.0-7.3) 09/08/16 03:36 Eos % (Auto) 0.1 % (0.0-4.3) 09/08/16 03:36 Baso % (Auto) 0.3 % (0.0-1.8) 09/08/16 03:36 Lymph # 1.0 K/mm3 (1.2-5.4) L 09/08/16 03:36 [place] # 0.3 K/mm3 (0.0-0.8) 09/08/16 03:36 Eos # 0.0 K/mm3 (0.0-0.4) 09/08/16 03:36 Baso # 0.0 K/mm3 (0.0-0.1) 09/08/16 03:36 Seg Neutrophils % 81.4 % (40.0-70.0) H 09/08/16 03:36 Seg Neutrophils # 5.5 K/mm3 (1.8-7.7) 09/08/16 03:36 POC ABG pH 7.309 (7.35-7.45) L 09/07/16 14:26 POC ABG pCO2 42.9 (35-45) 09/07/16 14:26 POC ABG pO2 71 (80-105) L 09/07/16 14:26 POC ABG HCO3 21.6 09/07/16 14:26 POC ABG Total CO2 23 09/07/16 14:26 POC ABG O2 Sat 92 09/07/16 14:26 POC ABG Base Excess -5 09/07/16 14:26 FiO2 30 % 09/07/16 14:26 Sodium 141 mmol/L (137-145) 09/08/16 03:36 Potassium 4.4 mmol/L (3.6-5.0) 09/08/16 03:36 Chloride 103.4 mmol/L (98-107) 09/08/16 03:36 Carbon Dioxide 24 mmol/L (22-30) 09/08/16 03:36 Anion Gap 18 mmol/L 09/08/16 03:36 BUN 9 mg/dL (7-17) 09/08/16 03:36 Creatinine 0.7 mg/dL (0.7-1.2) 09/08/16 03:36 Estimated GFR > 60 ml/min 09/08/16 03:36 BUN/Creatinine Ratio 12.85 % 09/08/16 03:36 Glucose 139 mg/dL (65-100) H 09/08/16 03:36 Calcium 9.1 mg/dL (8.4-10.2) 09/08/16 03:36 Magnesium 1.80 mg/dL (1.7-2.3) 09/07/16 11:29 Troponin T < 0.010 ng/mL (0.00-0.029) 09/07/16 12:26 HCG, Qual Negative (Negative) 09/07/16 12:37
[2016-09-11] MEDS: SINGULAIR PO SCH (21:43)
[2016-09-12] MEDS: BROVANA NEBU IH SCH ×2 (08:34→21:00)
[2016-09-12] MEDS: PULMICORT IH SCH ×2 (08:34→21:00)
[2016-09-12] MEDS: DUONEB 0.5 MG-3 MG/3 ML SOLN IH SCH ×3 (08:34→23:02)
--- NOTE | 2016-09-12 10:23 | Discharge Summary ---
Providers - Providers Date of Admission: 09/07/16 13:19 Date of discharge: 09/12/16 Attending physician: CELSO RICHARD 09/08/16 18:01 Consult to Physician [CONS] Routine Consulting Provider: CARLOS LOMBARDI Reason For Exam: persistent asthma Place consult to:: Dr. Lombardi Notified:: CELESTINO FROM ANSWERING SERVICE Phone number called:: [phone] Was contact made?: Yes If yes, spoke with:: CELESTINO Time called:: 06:55 09/10/16 14:13 Consult to Case Management [CONS] Routine Services Needed at Discharge: Other Notified:: immigration case worker Comment:: needs help w drug transition assistant program and insurance 09/11/16 13:12 Physical Therapy Evaluation and Treat [CONS] Urgent Comment: Reason For Exam: debility Primary care physician: DIRECTOR OF RESEARCH AND DEVELOPMENT Hospitalization Condition: Stable Disposition: DISCHARGED TO HOME OR SELFCARE Core Measure Documentation - Palliative Care Palliative Care/ Comfort Measures: Not Applicable - Core Measures Any of the following diagnoses?: none Exam - Constitutional Vitals: Temp Pulse Resp BP Pulse Ox 98.1 F 95 H 18 137/61 94 09/12/16 08:03 09/12/16 08:34 09/12/16 08:34 09/12/16 08:03 09/12/16 08:03 General appearance: Present: no acute distress, well-nourished - EENT Eyes: Present: PERRL, EOM intact - Neck Neck: Present: supple, normal ROM - Respiratory Respiratory effort: normal Respiratory: bilateral: diminished, negative: rales, rhonchi, wheezing - Cardiovascular Rhythm: regular Heart Sounds: Present: S1 & S2 - Extremities Extremities: no ischemia, pulses intact, pulses symmetrical Peripheral Pulses: within normal limits - Abdominal General gastrointestinal: Present: soft, non-tender, non-distended, normal bowel sounds - Integumentary Integumentary: Present: clear, warm - Musculoskeletal Musculoskeletal: strength equal bilaterally - Psychiatric Psychiatric: appropriate mood/affect, cooperative - Neurologic Neurologic: CNII-XII intact, moves all extremities Plan Activity: no restrictions Follow up with: [facility] [Outside] - 09/19/16 10:30 am PRIMARY CARE, [Primary Care Provider] - 7 Days
[2016-09-12] MEDS: XANAX PO SCH ×2 (10:57→22:02)
[2016-09-12] MEDS: DELTASONE PO SCH (10:57)
[2016-09-12] MEDS: PEPCID PO SCH ×2 (10:57→22:02)
[2016-09-12] MEDS: FIORICET PO PRN ×2 (10:57→22:02)
[2016-09-12] MEDS: LEVAQUIN 750MG/150ML 750 MG/150 ML BAG IV SCH (10:58)
[2016-09-12] MEDS ORDERED: DULCOLAX PR ONE (12:00)
[2016-09-12] MEDS ORDERED: MILK OF MAGNESIA PO ONE (12:00)
--- NOTE | 2016-09-12 12:56 | Progress Note ---
Assessment and Plan Assessment and plan: Assessment: --Intractable nausea vomiting, acute gastritis --Constipation -- Acute hypoxic respiratory failure -- Asthma exacerbation --Migraine --Anxiety Plan: --Antiemetics pain medications antacids We will check CT abdomen and pelvis with contrast to rule out acute abnormalities --Plenty oral fluids, stool softeners, suppositories, enema if no improvement --Oxygen titrated to O2 sats more than 90% We'll taper the dose of IV steroids, continue IV antibiotics Nebulizers, inhalation steroids, evaluation for home oxygen, Singulair --Continue Fioricet when necessary, supportive care --Continue benzodiazepines and supportive care --Lovenox for DVT prophylaxis -- follow CT abdomen and pelvis --Disposition ; Possible discharge in 1-2 days if stable Plan of care discussed with the patient, family member at the bedside, her nurse As well as the case management History Interval history: Patient seen and evaluated medical records reviewed Complaints of constipation as well as intractable nausea and vomiting Shortness of breath significantly improved Alert awake oriented 3 not in acute distress Vital signs reviewed Hospitalist Physical - Constitutional Vitals: Temp Pulse Resp BP Pulse Ox 98.1 F 95 H 18 137/61 98 09/12/16 08:03 09/12/16 08:44 09/12/16 08:44 09/12/16 08:03 09/12/16 10:00 General appearance: Present: no acute distress, well-nourished - EENT Eyes: Present: PERRL, EOM intact - Neck Neck: Present: supple, normal ROM - Respiratory Respiratory effort: normal Respiratory: bilateral: diminished, negative: rales, rhonchi, wheezing - Cardiovascular Rhythm: regular Heart Sounds: Present: S1 & S2 - Extremities Extremities: no ischemia, pulses intact, pulses symmetrical Peripheral Pulses: within normal limits - Abdominal General gastrointestinal: soft, non-tender, non-distended, normal bowel sounds - Integumentary Integumentary: Present: clear, warm - Psychiatric Psychiatric: appropriate mood/affect, cooperative - Neurologic Neurologic: CNII-XII intact, moves all extremities Results - Labs CBC & Chem 7: 09/08/16 03:36 09/08/16 03:36 Labs: Laboratory Last Values WBC 6.7 K/mm3 (4.5-11.0) 09/08/16 03:36 RBC 4.48 M/mm3 (3.65-5.03) 09/08/16 03:36 Hgb 13.1 gm/dl (10.1-14.3) 09/08/16 03:36 Hct 39.9 % (30.3-42.9) 09/08/16 03:36 MCV 89 fl (79-97) 09/08/16 03:36 MCH 29 pg (28-32) 09/08/16 03:36 MCHC 33 % (30-34) 09/08/16 03:36 RDW 14.2 % (13.2-15.2) 09/08/16 03:36 Plt Count 302 K/mm3 (140-440) 09/08/16 03:36 Lymph % (Auto) 14.5 % (13.4-35.0) 09/08/16 03:36 [place] % (Auto) 3.7 % (0.0-7.3) 09/08/16 03:36 Eos % (Auto) 0.1 % (0.0-4.3) 09/08/16 03:36 Baso % (Auto) 0.3 % (0.0-1.8) 09/08/16 03:36 Lymph # 1.0 K/mm3 (1.2-5.4) L 09/08/16 03:36 [place] # 0.3 K/mm3 (0.0-0.8) 09/08/16 03:36 Eos # 0.0 K/mm3 (0.0-0.4) 09/08/16 03:36 Baso # 0.0 K/mm3 (0.0-0.1) 09/08/16 03:36 Seg Neutrophils % 81.4 % (40.0-70.0) H 09/08/16 03:36 Seg Neutrophils # 5.5 K/mm3 (1.8-7.7) 09/08/16 03:36 POC ABG pH 7.309 (7.35-7.45) L 09/07/16 14:26 POC ABG pCO2 42.9 (35-45) 09/07/16 14:26 POC ABG pO2 71 (80-105) L 09/07/16 14:26 POC ABG HCO3 21.6 09/07/16 14:26 POC ABG Total CO2 23 09/07/16 14:26 POC ABG O2 Sat 92 09/07/16 14:26 POC ABG Base Excess -5 09/07/16 14:26 FiO2 30 % 09/07/16 14:26 Sodium 141 mmol/L (137-145) 09/08/16 03:36 Potassium 4.4 mmol/L (3.6-5.0) 09/08/16 03:36 Chloride 103.4 mmol/L (98-107) 09/08/16 03:36 Carbon Dioxide 24 mmol/L (22-30) 09/08/16 03:36 Anion Gap 18 mmol/L 09/08/16 03:36 BUN 9 mg/dL (7-17) 09/08/16 03:36 Creatinine 0.7 mg/dL (0.7-1.2) 09/08/16 03:36 Estimated GFR > 60 ml/min 09/08/16 03:36 BUN/Creatinine Ratio 12.85 % 09/08/16 03:36 Glucose 139 mg/dL (65-100) H 09/08/16 03:36 POC Glucose 84 (70-105) 09/11/16 12:25 Calcium 9.1 mg/dL (8.4-10.2) 09/08/16 03:36 Magnesium 1.80 mg/dL (1.7-2.3) 09/07/16 11:29 Troponin T < 0.010 ng/mL (0.00-0.029) 09/07/16 12:26 HCG, Qual Negative (Negative) 09/07/16 12:37
--- NOTE | 2016-09-12 13:35 | Progress Note ---
Assessment and Plan Asthma exacerbation. Controlled at this time Vomiting episode. This being evaluated by hospitalist at this time Anxiety. No major complaints at the moment Recommendations I will complete prednisone 30 mg daily for 5 days, in no GI issues noted. If this is not possible we will rely on the rest of the treatment Recumbent combination ICS/LABA/LTRE with Breo 1 inhalation daily or Symbicort 160/4.52 inhalations twice a day, plus montelukast 10 mg by mouth daily in addition to the oral steroids. Needs follow-up with primary physician and PFTs once released from the hospital. Discussed with the patient in detail The patient can be found on the pulmonary office to review her outpatient asthma management . Will sign off Subjective Date of service: 09/12/16 Principal diagnosis: status asthmaticus, aspirin exacerbation, anxiety Interval history: Reports no respiratory complaints today. No cough or wheezing noted. She has some vomiting earlier now feeling better Objective Vital Signs - 12hr 09/12/16 09/12/16 09/12/16 04:27 07:58 08:03 Temperature 97.4 F L 97.9 F 98.1 F Pulse Rate 71 Pulse Rate [ Anterior Bilateral Throughout] Pulse Rate [ 67 Right Dorsalis Pedis] Pulse Rate [ 75 95 H Right Radial] Respiratory 20 18 20 Rate Respiratory Rate [Anterior Bilateral Throughout] Blood Pressure 110/69 [Left Arm] Blood Pressure 92/53 137/61 [Right Arm] O2 Sat by Pulse 100 96 94 Oximetry 09/12/16 09/12/16 09/12/16 08:34 08:44 10:00 Temperature Pulse Rate Pulse Rate [ 95 H 95 H Anterior Bilateral Throughout] Pulse Rate [ Right Dorsalis Pedis] Pulse Rate [ Right Radial] Respiratory Rate Respiratory 18 18 Rate [Anterior Bilateral Throughout] Blood Pressure [Left Arm] Blood Pressure [Right Arm] O2 Sat by Pulse 98 Oximetry Constitutional: no acute distress, alert, other (mild dyspnea) Eyes: non-icteric ENT: oropharynx moist Neck: supple Ascultation: Bilateral: clear Cardiovascular: regular rate and rhythm Gastrointestinal: normoactive bowel sounds, soft, non-tender, non-distended Integumentary: normal Extremities: no cyanosis Neurologic: normal mental status, non-focal exam Psychiatric: anxious CBC and BMP: 09/08/16 03:36 09/08/16 03:36 ABG, PT/INR, D-dimer: ABG POC ABG pH 7.309 (7.35-7.45) L 09/07/16 14:26 POC ABG pCO2 42.9 (35-45) 09/07/16 14:26 POC ABG pO2 71 (80-105) L 09/07/16 14:26 POC ABG HCO3 21.6 09/07/16 14:26 POC ABG Total CO2 23 09/07/16 14:26 POC ABG O2 Sat 92 09/07/16 14:26 Abnormal lab findings: Abnormal Labs 09/07/16 09/08/16 09/08/16 14:26 03:36 03:36 Lymph # 1.0 L Seg Neutrophils % 81.4 H POC ABG pH 7.309 L POC ABG pO2 71 L Glucose 139 H
--- NOTE | 2016-09-12 15:09 | Cat Scan Report ---
CT ABDOMEN AND PELVIS WITH CONTRAST INDICATION: Intractable nausea and vomiting. COMPARISON: None similar. FINDINGS: Abdomen and pelvis CT performed following oral contrast and intravenous administration of 100 cc of Omnipaque 300. LUNG BASES: Normal heart size. No effusions. Slight nonspecific distal esophageal prominence/thickening. ABDOMEN: Left hepatic lobe tip wraps around the spleen in the left upper quadrant. Otherwise unremarkable liver, spleen, gallbladder, pancreas, adrenals, nonaneurysmal abdominal aorta, IVC and kidneys without hydronephrosis, ascites or size significant adenopathy. Opacified small bowel nonobstructive and within normal limits. Stomach poorly distended. Fluid/poorly formed stool throughout the colon. PELVIS: Urinary bladder, uterus, right adnexa/ovary and the rectosigmoid within normal limits. Small left adnexal/ovarian follicular cysts measuring up to 1.8 cm. No free fluid or significant adenopathy. Unremarkable bones. CONCLUSION: 1. No acute CT abnormality, though liquid colonic contents may be correlated for gastroenteritis or laxative use in an appropriate setting, amongst others. 2. Few other incidental findings, including prominent left hepatic lobe and slight nonspecific distal esophageal prominence/thickening. Thank you for the opportunity to participate in this patient's care.
[2016-09-12] MEDS: PERCOCET 5/325 PO PRN (19:50)
[2016-09-12] MEDS: SINGULAIR PO SCH (22:01)
[2016-09-13] MEDS: PERCOCET 5/325 PO PRN (03:21)
[2016-09-13 06:19] LABS: Anion Gap 14 mmol/L; Blood Urea Nitrogen 14 mg/dL (7-17); Calcium 8.8 mg/dL (8.4-10.2); Carbon Dioxide 26 mmol/L (22-30); Chloride 100.1 mmol/L (98-107); Glucose 78 mg/dL (65-100); Potassium 4.2 mmol/L (3.6-5.0); Sodium 136 mmol/L (137-145)
[2016-09-13] MEDS ORDERED: LEVAQUIN PO SCH (10:00)
[2016-09-13] MEDS: DELTASONE PO SCH (10:18)
[2016-09-13] MEDS: XANAX PO SCH (10:19)
[2016-09-13] MEDS: PEPCID PO SCH (10:19)
--- NOTE | 2016-09-13 10:33 | Discharge Summary ---
Providers - Providers Date of Admission: 09/07/16 13:19 Date of discharge: 09/13/16 Attending physician: CELSO RICHARD 09/08/16 18:01 Consult to Physician [CONS] Routine Consulting Provider: CARLOS LOMBARDI Reason For Exam: persistent asthma Place consult to:: Dr. Lombardi Notified:: CELESTINO FROM ANSWERING SERVICE Phone number called:: [phone] Was contact made?: Yes If yes, spoke with:: CELESTINO Time called:: 06:55 09/10/16 14:13 Consult to Case Management [CONS] Routine Services Needed at Discharge: Other Notified:: case management associate Comment:: needs help w drug assistant professor of sociology program and insurance 09/11/16 13:12 Physical Therapy Evaluation and Treat [CONS] Urgent Comment: Reason For Exam: debility Primary care physician: PHARMACY TECHNICIAN TRAINEE Hospitalization Reason for admission: worsening shortness of breath/acute respiratory failure Condition: Stable Pertinent studies: Chest x-ray; normal study CT abdomen and pelvis with contrast; no acute abnormality noted, incidental findings prominent left hepatic lobe slight nonspecific distal esophageal prominence and thickening Hospital course: Final diagnosis: -- Acute on chronic hypoxic respiratory failure -- Acute Asthma exacerbation --Migraine --Anxiety --acute gastritis intractable nausea vomiting --Constipation Brief history and hospital course; 25-year-old -[place] female patient with significant past medical history bronchial asthma was admitted through emergency room with worsening shortness of breath of 3 days' duration Patient was initially evaluated noted to be in acute on chronic hypoxic respiratory failure requiring oxygen Admitted to the hospital symptomatically managed with oxygen titrated to O2 sats more than 90%, nebulizers, IV steroids, IV antibiotics and inhalation steroids Patient also had acute gastritis with intractable nausea and vomiting which was symptomatically managed Later patient complains of constipation for which she received stool softeners Patient's symptoms significantly improved Today she is comfortable in bed alert awake oriented 3, Ambulatory and tolerating oral nutrition, Vital signs are stable Lyqa-if-caby evaluation physical examination done by me prior to discharge is unremarkable as detailed below Patient is hemodynamically and clinically stable for discharge and does not need any further acute inpatient care at this time Disposition: DISCHARGED TO HOME OR SELFCARE Time spent for discharge: 32 min Core Measure Documentation - Palliative Care Palliative Care/ Comfort Measures: Not Applicable - Core Measures Any of the following diagnoses?: none Exam - Constitutional Vitals: Temp Pulse Resp BP Pulse Ox 97.6 F 67 18 126/79 97 09/13/16 08:20 09/13/16 10:00 09/13/16 08:20 09/13/16 08:20 09/13/16 08:20 General appearance: Present: no acute distress, well-nourished - EENT Eyes: Present: PERRL, EOM intact - Neck Neck: Present: supple, normal ROM - Respiratory Respiratory effort: normal Respiratory: bilateral: CTA, negative: diminished, rales, rhonchi - Cardiovascular Rhythm: regular Heart Sounds: Present: S1 & S2 - Extremities Extremities: no ischemia, pulses intact, pulses symmetrical Peripheral Pulses: within normal limits - Abdominal General gastrointestinal: Present: soft, non-tender, non-distended - Integumentary Integumentary: Present: clear, warm - Musculoskeletal Musculoskeletal: strength equal bilaterally - Psychiatric Psychiatric: appropriate mood/affect, cooperative - Neurologic Neurologic: CNII-XII intact, moves all extremities Plan Activity: no restrictions Diet: regular Follow up with: [facility] [Outside] - 09/19/16 10:30 am PRIMARY CARE, [Primary Care Provider] - 7 Days Forms: Discharge Signature Page Prescriptions: Budesoni/Formotero 160-4.5(Nf) [Symbicort 160-4.5 (Nf)] 2 puff IH BID 30 Days Butalb/Acetamin/Caff 50-325-40 [Fioricet] 2 tab PO Q4H PRN #30 tablet PRN Reason: Headache Docusate Sodium [Colace] 100 mg PO BID PRN #30 capsule PRN Reason: Constipation Ipratropium/Albuterol Sulfate [Combivent Respimat] 1 spray IH QID 30 Days Montelukast [Singulair] 10 mg PO QHS #30 tablet oxyCODONE /ACETAMINOPHEN [Percocet 5/325] 1 tab PO BID PRN #10 tablet PRN Reason: Pain predniSONE [Deltasone] 30 mg PO QDAY #12 tablet
[2016-09-13] MEDS: DUONEB 0.5 MG-3 MG/3 ML SOLN IH SCH ×2 (11:33→20:41)
[2016-09-13] MEDS: PULMICORT IH SCH (11:34)
[2016-09-13] MEDS: BROVANA NEBU IH SCH (11:34)
[2016-09-13 13:57] VITALS: BP 120/79
== END 2016-09-13 14:25 | disposition home or self-care (01) | DRG 202 ==
LOC: ED 11:01 → 4A 13:19
PROVIDERS: ADMIT Internal Medicine; ATTEND Internal Medicine
PROC: 4A033R1 Measurement of Arterial Saturation, Peripheral, Percutaneous Approach (ICD-10-PCS; principal; 2016-09-07)
DX: J45.41 Moderate persistent asthma with (acute) exacerbation (principal); J96.01 Acute respiratory failure with hypoxia; G43.909 Migraine, unspecified, not intractable, without status migrainosus; F41.9 Anxiety disorder, unspecified; K29.70 Gastritis, unspecified, without bleeding
CPT/HCPCS: 36415; 36600; 71010; 74177; 80048; 82803; 82962; 83735; 84484; 84703; 85025; 93005; 93010; 94640; 94760; 96374; 96375; J1170; J1956; J2060; J2920; J2930; J7512; Q9966